=== PATIENT | female | born 1995 | race Caucasian/White ===

== ENCOUNTER 2022-03-14 10:21 | Emergency (ER) | payer MEDICAID, SELFPAY ==
[2022-03-14 11:25] VITALS: BP 129/78; PULSE 69; RESP 19; TEMP 36.8; O2SAT 98; BMI 34.2
--- NOTE | 2022-03-14 11:43 | EXP.UTC ---
Discharge Plan Disposition Patient Disposition: Home, Self-Care Condition: Good Prescriptions Prescriptions: New azithromycin [Zithromax Z-Alex] 250 mg tablet See Rx Instructions .ROUTE .COMPLEX 5 Days Qty: 6 0RF Rx Instructions: For 250 mg dose pack: take 500 mg today (day 1), then 250 mg for 4 days (days 2-5) benzonatate 100 mg capsule 100 mg PO TID PRN (Reason: cough) Qty: 30 0RF methylprednisolone [Medrol (Alex)] 4 mg tablets,dose pack See Rx Instructions .Route .COMPLEX 6 Days Qty: 21 0RF Rx Instructions: taper pack; albuterol sulfate [Proventil HFA] 90 mcg/actuation HFA aerosol inhaler 1 inh inhalation Q6H PRN (Reason: shortness of breath or wheezing) Qty: 8.5 0RF No Action spironolactone 100 mg tablet 100 mg PO DAILY Label Comments: TAKE 1 TABLET BY MOUTH EVERY DAY metformin 500 mg tablet extended release 24 hr 500 mg PO DAILY Label Comments: TAKE 1 TABLET BY MOUTH EVERY MORNING duloxetine 60 mg capsule,delayed release(DR/EC) 30 mg PO DAILY Label Comments: TAKE 1 CAPSULE BY MOUTH EVERY DAY Referrals Follow up/Referrals: Haydee Cramer APRN [Primary Care Provider] - See instructions Activity Restrictions/Add. Instructions Additional Instructions/Restrictions: Start antibiotic today. Be sure to complete entire prescription even if feeling better Monitor temp. Tylenol every 4 hours as needed and / or ibuprofen every 6 hours as needed ( As long as your primary care physician has told you that it ok to take both. For fever/aches/pains ER if no less than 101 despite Tylenol or Motrin Humidifier/vaporizer or hot steamy shower Inhaler every 4-6 hours as needed like we discussed. If unsure how to use it, ask pharmacist to demonstrate how. Should help open airways and improve cough, wheezing, and shortness of breath *Tessalon Perles will not cause drowsiness but use at bedtime to help stop cough so that you may get some rest. *Start steroid today. Helps with inflammation therefore, cough and wheezing. Follow directions on the package. Reviewed side effects. Patient reports taking them before. Follow up IMMEDIATELY for new or worsening of symptoms OR no noticeable improvement over the next 48-72 hours. 911 immediately for any life threatening symptoms such as chest pain or difficulty breathing Clinical Impressions Clinical Impression: Sinusitis, Bronchitis Instructions Patient Instructions: Sinusitis, Acute Bronchitis, DI for Sinusitis Discharge ED Provider: Roxanna West [facility] [place] HPI General Stated complaint: Sore throat, drainage, congestion, cough Mode of Arrival: Ambulatory Source of Information: Patient Limitations: No Limitations Time Seen by Provider: 03/14/22 11:43 Description of Symptoms (Recalled from Triage Doc. by RN): PATIENT C/O SORE THROAT, CONGESTION, AND COUGH SINCE YESTERDAY HEENT Symptoms (Recalled from RN notes): Yes Resp Symptoms (Recalled from RN notes): Yes Skin Symptoms (Recalled from RN notes): No MS Symptoms (Recalled from RN notes): No Functional Status (Recalled from RN notes): WNL History of Present Illness Provider Complaint: Patient state that she hasnt felt well in a couple of days State that yesterday she was feeling worse States that she feels like it has moved into her chest States that she has been having cough, chest congestion, sinus congestion and drainage and sore scratchy throat so she came in to get checked Related Data Home Medications Medication Instructions Recorded Confirmed duloxetine 60 mg capsule,delayed 30 mg PO DAILY Anxiety 03/14/22 03/14/22 release metformin 500 mg tablet,extended 500 mg PO DAILY PCOS 03/14/22 03/14/22 release 24 hr spironolactone 100 mg tablet 100 mg PO DAILY PCOS 03/14/22 03/14/22 Previous Rx's Medication Instructions Recorded albuterol sulfate 90 mcg/actuation 1 inh inhalation Q6H PRN shortness 03/14/22 aerosol inhaler (Pr
[2022-03-14 11:54] LABS: UTC Strep Screen (Rapid) Negative (Negative)
[2022-03-14 12:15] VITALS: BP 129/78; PULSE 69; RESP 19; TEMP 36.8; O2SAT 98
== END 2022-03-14 12:25 | disposition home or self-care (01) ==
PROVIDERS: Emergency Provider Nurse Practitioner; PCP Nurse Practitioner
DX: J02.9 Acute pharyngitis, unspecified (principal); R06.02 Shortness of breath; R50.9 Fever, unspecified; R51.9 Headache, unspecified; R05.9 Cough, unspecified; R09.89 Other specified symptoms and signs involving the circulatory and respiratory systems; F32.A Depression, unspecified; F41.9 Anxiety disorder, unspecified; Z79.51 Long term (current) use of inhaled steroids; Z79.52 Long term (current) use of systemic steroids; Z79.84 Long term (current) use of oral hypoglycemic drugs; Z79.899 Other long term (current) drug therapy; Z87.440 Personal history of urinary (tract) infections
CPT/HCPCS: 87880; 99213; G0463

== ENCOUNTER 2022-07-08 13:47 | Emergency (ER) | payer MEDICAID, SELFPAY ==
[2022-07-08 14:00] VITALS: BP 124/82; PULSE 66; RESP 18; TEMP 36.8; O2SAT 97; BMI 34.3
--- NOTE | 2022-07-08 14:30 | EXP.UTC ---
Discharge Plan Disposition Patient Disposition: Home, Self-Care Condition: Good Prescriptions Prescriptions: New silver sulfadiazine [Silvadene] 1 % cream 1 applic topical BID Qty: 50 0RF Rx Instructions: apply a 1.5 mm thickness to hand bid No Action spironolactone 100 mg tablet 100 mg PO DAILY Label Comments: TAKE 1 TABLET BY MOUTH EVERY DAY metformin 500 mg tablet extended release 24 hr 500 mg PO DAILY Label Comments: TAKE 1 TABLET BY MOUTH EVERY MORNING duloxetine 60 mg capsule,delayed release(DR/EC) 30 mg PO DAILY Label Comments: TAKE 1 CAPSULE BY MOUTH EVERY DAY azithromycin [Zithromax Z-Alex] 250 mg tablet See Rx Instructions .ROUTE .COMPLEX 5 Days Qty: 6 0RF Rx Instructions: For 250 mg dose pack: take 500 mg today (day 1), then 250 mg for 4 days (days 2-5) benzonatate 100 mg capsule 100 mg PO TID PRN (Reason: cough) Qty: 30 0RF methylprednisolone [Medrol (Alex)] 4 mg tablets,dose pack See Rx Instructions .Route .COMPLEX 6 Days Qty: 21 0RF Rx Instructions: taper pack; albuterol sulfate [Proventil HFA] 90 mcg/actuation HFA aerosol inhaler 1 inh inhalation Q6H PRN (Reason: shortness of breath or wheezing) Qty: 8.5 0RF Referrals Follow up/Referrals: Haydee Cramer APRN [Primary Care Provider] - See instructions Activity Restrictions/Add. Instructions Additional Instructions/Restrictions: keep area clean and dry cover while at work clean area and apply cream follow up sunday with pcp return or be seen in ed if symptoms worsen Clinical Impressions Clinical Impression: Burn Instructions Patient Instructions: DI for Sterling, How to Take Care of a Burn, Minor [place] (Alternative Therapy) Discharge ED Provider: Carmelo ([facility])Dami [facility] [place] HPI General Stated complaint: AO@Work 07/08 1330 RT hand burn Mode of Arrival: Ambulatory Source of Information: Patient Limitations: No Limitations Time Seen by Provider: 07/08/22 14:30 History of Present Illness Provider Complaint: 26 yr old female presents for burn to rt hand 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 Related Data Home Medications Medication Instructions Recorded Confirmed duloxetine 60 mg capsule,delayed 30 mg PO DAILY Anxiety 03/14/22 03/14/22 release metformin 500 mg tablet,extended 500 mg PO DAILY PCOS 03/14/22 03/14/22 release 24 hr spironolactone 100 mg tablet 100 mg PO DAILY PCOS 03/14/22 03/14/22 Previous Rx's Medication Instructions Recorded albuterol sulfate 90 mcg/actuation 1 inh inhalation Q6H PRN shortness 03/14/22 aerosol inhaler (Proventil HFA) of breath or wheezing #8.5 grams azithromycin 250 mg tablet See Rx Instructions PO .COMPLEX 5 03/14/22 (Zithromax Z-Alex) days #6 tabs benzonatate 100 mg capsule 100 mg PO TID PRN cough #30 caps 03/14/22 methylprednisolone 4 mg tablets in See Rx Instructions .Route 03/14/22 a dose pack (Medrol (Alex)) .COMPLEX 6 days #21 tabs silver sulfadiazine 1 % topical 1 applic topical BID #50 grams 07/08/22 cream (Silvadene) Allergies Allergy/AdvReac Type Severity Reaction Status Date / Time No Known Allergies Allergy Verified 03/14/22 11:41 [facility] Disclaimer: The information contained in this section may have been updated after the patient was seen, as this information can be updated by other users. Medical History , CODE OFFICIAL) Acute depression Anxiety Urinary tract infection Social History , CODE OFFICIAL) Smoking Status: Unknown if ever smoked alcohol intake: never current occupational status: other Travel in the last 8 weeks: None ROS Obtained: Yes All systems reviewed & no additional complaints except as documented Constitutional Constitutional: Reports system reviewed and no additional complaints, except as documented and Reports as per HPI Eyes Eyes: Reports system reviewed a
[2022-07-08 14:46] VITALS: BP 124/82; PULSE 66; RESP 18; TEMP 36.8; O2SAT 97
== END 2022-07-08 14:50 | disposition home or self-care (01) ==
PROVIDERS: Emergency Provider Nurse Practitioner Family; PCP Nurse Practitioner
DX: T23.001A Burn of unspecified degree of right hand, unspecified site, initial encounter (principal); X12.XXXA Contact with other hot fluids, initial encounter
CPT/HCPCS: 99212; 99214; G0463

== ENCOUNTER 2025-03-03 17:56 | Outpatient (CLI) | payer SELFPAY ==
--- OUTSIDE RECORDS SUMMARY | 2025-03-04 13:12 | XMS_ITS | Clinical Summary ---
Author Organization [facility] yste Address [address] [place] [address] Care Team Providers Care Toilet Attendant Name Role Phone Ramya Bullard MD Primary Care Provider [phone] Allergies No known active allergies Medications METFORMIN HCL PO Take by mouth. Active albuterol (PROVENTIL HFA;VENTOLIN HFA) 108 (90 Base) MCG/ACT inhaler 1-2 puffs q 4-6 hours prn for SOB or wheeze 1 inhaler 07/18/2017 Active Family History Medical History Relation Name Comments Diabetes Father Lung disease Father Heart disease Mother Lung disease Mother Relation Name Status Comments Father Mother Social History Tobacco Use Types Packs/Day Years Used Date Smoking Tobacco: Every Day Cigarettes 1 3 Abuse Screen Answer Date Recorded Unsafe at Home or Work/School Not on file Feels Threatened by Someone? Not on file 03/2023 Does Anyone Keep You from Co ntacting Others or Doint Things Outside the Home? Not on file 02/01/2023 Physical Sign of Abuse Present Not on file 1 Housing Stability Answer Date Recorded Current Living Arrangements Not on file 01/21 Potentially Unsafe Housing Conditions Not on ceci e 02/01/2023 Family and Community Support Answer Kevin e Recorded Help with Day-to-Day Activities Not on file 02/01/2023 Lonely or Isolated Not on file 02/01/2023 Employment Answer Date Recorded Do you want help finding or keeping work or a nikolas b? Not on file 02/01/2023 Disabilities Answer Date Recorded Concentrating, Remembering, or Making Decisions Difficulty Not on file 02/01/2023 Doing Errands Independently Difficulty Not on fi le 02/01/2023 Education Answer Date Recorded Help with school or training? Not on file Preferred Language Not on file 02/01/2023 Comments Unknown Sex and Gender Information Value Date Recorded Sex Assigned at Not on file Legal Sex Female 10:33 AM EDT Gender Identity Not on file Sexual Orientation Not on file Last Filed Vital Signs Vital Sign Reading Time Taken Comments Blood Pressure - - Pulse 108 07/18/2017 11:02 AM EDT Temperature 37.3 C (99.2 F) 07/18/2017 11:02 AM EDT Respiratory Rate 16 07/18/2017 11:02 AM EDT Oxygen Saturation 98% 07/18/2017 11:02 AM EDT Inhaled Oxygen Concentration - - Weight 95.7 kg (211 lb) 07/18/2017 11:02 AM EDT Height 162.6 cm (5' 4 ) 07/18/2017 11:02 AM EDT Body Mass Index 36.22 07/18/2017 11:02 AM EDT Plan of Treatment Health Maintenance Due Date Last Done Comments Annual Gynecologic Pelvic an d Breast Exam 1995 TDAP/TD VACCINES (1 - Tdap) 12/30/2014 ANNUAL PHYSICAL 07/18/2017 HEPATITIS C SCREENING 07/18/2017 INFLUENZA VACCINE 11/21/2024 Pneumococcal Vaccine 0-49 Aged Out No longer eligible based on patient's age to complete this topic Insurance [facility] Care Teams Toilet Attendant Relationship Specialty Start Date End Date Ramya Bullard MD [address] [place] [address] PCP - General Family Medicine 07/18/17
--- OUTSIDE RECORDS SUMMARY | 2025-03-04 13:12 | XMS_ITS | Referral Summary ---
Author Organization [employer] ([place], [place], [place], [place], [place]) Address [address] [place] [address] Care Team Providers Care Bomb Loader Name Role Phone Haydee Cramer APRN Primary Care Provider [phone] Camilo Mann MD Unavailable Allergies No known active allergies Medications metFORMIN (GLUCOPHAGE) 1000 MG tablet Take by mouth. Active spironolactone (ALDACTONE) 100 MG tablet Take by mouth. Active venlafaxine (EFFEXOR) 50 MG tablet Take 1 tablet (50 mg total) by mouth 2 (two) times daily. Active Active Problems Problem Noted Date Diagnosed Date S/P US guided Right carpal tunnel release 08/23/19 23 09/04/2022 Bilateral carpal tunnel syndrome 08/03/2022 Right carpal tunnel syndrome 08/03/2022 Left carpal tunnel syndrome 08/03/2022 Social History Tobacco Use Types Packs/Day Years Used Date Smoking Tobacco: Former Cigarettes Q uit: 2020 Smokeless Tobacco: Never Tobacco Cessation:Counseling Given: Not Answered Comments:Uses a vape Alcohol Use Standard Drinks/Week Comments Not Currently 0 (1 standard drink = 0.6 oz pur e alcohol) Socially Food Insecurity Answer Date Recorded Food run out past 12 months Not on file 04/23 Food did not last past 12 months Not on file 05/11/2023 Employment Answer Date Recorded Help finding and keeping a job Not on file 0 05/11/2023 Family and Community Support Answer Kevin e Recorded Help with Day to Day Activities Not on file 05/11/2023 Feeling Lonely or Isolated Not on file 05/11 Educational Attainment Answer Date Juan Miguel rded Speak language other than Algerian at home Not on file 05/11/2023 Want help with school or training Not on file 05/11/2023 Substance Use Answer Date Recorded Used prescription meds for non-medical reasons N ot on file 05/11/2023 Used illegal drugs past 12 months Not on file 05/11/2023 Comments No Sex and Gender Information Value Date Recorded Sex Assigned at Not on file Legal Sex Female 1:43 PM CDT Gender Identity Not on file Sexual Orientation Not on file Last Filed Vital Signs Vital Sign Reading Time Taken Comments Blood Pressure 95/61 11/30/2022 1:41 PM EDT Pulse 57 11/30/2022 1:41 PM EDT Temperature 36.2 C (97.1 F) 10/10/2022 7:23 AM EDT Respiratory Rate 18 11/30/2022 1:41 PM EDT Oxygen Saturation 96% 10/10/2022 8:08 AM EDT Inhaled Oxygen Concentration - - Weight 88 kg (194 lb) 11/30/2022 1:41 PM EDT Height 162.6 cm (5' 4 ) 11/30/2022 1:41 PM EDT Body Mass Index 33.3 11/30/2022 1:41 PM EDT Plan of Treatment Not on file Insurance [facility] MEDICAID Advance Directives For more information, please contact: [phone] * Full Code (Latest Code Status on File) Date Activated Date Inactivated Comments 10/10/2022 6:16 AM 10/10/2022 9:21 AM * Full Code Date Activated Date Inactivated Comments 08/22/2022 7:30 AM 08/22/2022 12:08 PM Care Teams Bomb Loader Relationship Specialty Start Date End Date Haydee Cramer, LEXIE [address] [place] [address] PCP - General Nurse Practitioner 05/04/22 Camilo Mann MD [address] [place] [id number] Sports Medicine 12/07/23
--- OUTSIDE RECORDS SUMMARY | 2025-03-04 13:12 | XMS_ITS | Clinical Summary ---
Author Organization [facility] ([place], [place], [place], [place], [place]) Address [address] [place] [address] Care Team Providers Care Publications Manager Name Role Phone Haydee Cramer APRN Primary Care Provider [phone] Camilo Mann MD Unavailable Allergies No known [...] syndrome 08/03/2022 Left carpal tunnel syndrome 08/03/2022 Family History Medical History Relation Name Comments Cancer Other Diabetes Other Kidney disease Other Thyroid disease Other Relation Name Status Comments Other Social History Tobacco Use Types Packs/Day Years [...] Juan Miguel rded Speak language other than Montenegrin at home Not on file 05/11/2023 Want [...] 11/30/2022 1:41 PM EDT Plan of Treatment Health Maintenance Due Date Last Done Comments Depression Screening (12+) 2007 HIV Screening 12/30/2010 Hepatitis C Screening 12/30/2013 DTAP/TDAP/TD VACCINES (1 - Tdap) 12/30/2014 Lipid Panel 2015 Pap Smear 12/30/2016 Tobacco Cessation Counseling and Screening (12+) 10/27/2023 10/26/2022 COVID-19 VACCINE (3 - 2024-2 6 season) 2024 10/20/2020, 09/29/2020 Influenza Vaccine (#1) 2024 Pneumococcal Vaccine: 0-49 Years Aged Out No longer eligible b ased on patient's age to complete this topic Insurance [employer] MEDICA[employer] Advance Directives For more information, please contact: [phone] * Full Code (Latest Code Status on File) Date Activated Date Inactivated Comments 10/10/2022 6:16 AM 10/10/2022 9:21 AM * Full Code Date Activated Date Inactivated Comments 08/22/2022 7:30 AM 08/22/2022 12:08 PM Care Teams Publications Manager Relationship Specialty Start Date End Date Haydee Cramer, PRODUCTION SCHEDULER [address] [place] [address] PCP - General Nurse Practitioner 05/04/22 Camilo Mann MD [address] [place] [address] Sports Medicine 12/07/23
== END 2025-03-03 23:59 | disposition home or self-care (01) ==
LOC: LAB.DROPOF 03-04 12:59
PROVIDERS: PCP Nurse Practitioner; Visit Provider Student in an Organized Health Care Education/Training Program
DX: N39.0 Urinary tract infection, site not specified (principal)
CPT/HCPCS: 87086; 87088